=== PATIENT | female | born 1975 | race Two or more races ===

== ENCOUNTER 2022-07-11 17:38 | Emergency (ER) | payer MEDICAID ==
[~2022-07-11] VITALS: Ht 167.6 cm; Wt 106.3 kg
[2022-07-11 17:57] VITALS: BP 154/89
== END 2022-07-11 19:27 | disposition left against medical advice (07) ==
LOC: ER 17:38
DX: S61.012A Laceration without foreign body of left thumb without damage to nail, initial encounter (principal); Z53.21 Procedure and treatment not carried out due to patient leaving prior to being seen by health care provider; W26.0XXA Contact with knife, initial encounter; Y93.89 Activity, other specified; Y92.89 Other specified places as the place of occurrence of the external cause; Y99.8 Other external cause status

== ENCOUNTER 2022-12-19 04:19 | Emergency (ER) | payer MEDICAID, OTHER | END 2022-12-19 04:23 | disposition left against medical advice (07) | LOC: EDBD 04:19 → ER 04:19 | DX: F41.9 Anxiety disorder, unspecified (principal); Z53.21 Procedure and treatment not carried out due to patient leaving prior to being seen by health care provider ==

== ENCOUNTER 2023-10-22 17:20 | Emergency (ER) | payer MEDICAID ==
[~2023-10-22] VITALS: Ht 167.6 cm; Wt 100.0 kg
[2023-10-22 17:31] VITALS: BP 153/91; PULSE 80
[2023-10-22] MEDS ORDERED: LISI-275 PO (17:43)
[2023-10-22 17:44] VITALS: RESP 18; O2SAT 99
== END 2023-10-22 18:25 | disposition home or self-care (01) ==
LOC: ER 17:20
DX: I12.9 Hypertensive chronic kidney disease with stage 1 through stage 4 chronic kidney disease, or unspecified chronic kidney disease (principal); N18.9 Chronic kidney disease, unspecified; F17.210 Nicotine dependence, cigarettes, uncomplicated; Z98.890 Other specified postprocedural states; Z88.5 Allergy status to narcotic agent

== ENCOUNTER 2024-03-24 23:08 | Emergency (ER) | payer MEDICAID ==
[~2024-03-24] VITALS: Ht 167.6 cm; Wt 81.8 kg
[~2024-03-24 23:08] MED LIST: LISI-275 PO
[2024-03-24 23:10] VITALS: BP 128/88; PULSE 89; RESP 18; O2SAT 100
== END 2024-03-24 23:22 | disposition left against medical advice (07) ==
LOC: EDBD 23:08 → ER 23:08
DX: J45.909 Unspecified asthma, uncomplicated (principal); Z53.21 Procedure and treatment not carried out due to patient leaving prior to being seen by health care provider

== ENCOUNTER 2024-10-24 03:51 | Emergency (ER) | payer MEDICAID ==
[~2024-10-24] VITALS: Ht 165.1 cm; Wt 117.2 kg
[2024-10-24 03:53] VITALS: BP 179/102; PULSE 90; RESP 24; TEMP 98.1; O2SAT 98
[2024-10-24] MEDS ORDERED: DIPH25CA66 PO (04:04)
[2024-10-24] MEDS ORDERED: PRED20TA2 PO (04:04)
--- NOTE | 2024-10-24 04:04 | ED.PDOC ---
HPI Allergic reaction HPI Comments 39-year-old female presents to ER with complaints of allergic reaction x1 hour. Patient reports that she woke up 1 hour prior to arrival to ER with sensation of tongue swelling and throat swelling and states she's had similar symptoms in the past related to an allergic reaction. Denies use of medications for current symptoms and denies any known triggers for her symptoms. Patient presents to ER ambulatory on arrival, speaking in clear and complete sentences, in no distress with no appreciable tongue swelling or throat swelling noted. Denies shortness of breath, chest pain, skin changes, nausea/vomiting, use of new soaps/detergents/lotions or any further symptoms/complaints Chief Complaint: Allergic Reaction Time Seen by MD: 03:56 Primary Care Provider: NONE Reviewed Notes: Nurses Notes, Medications, Allergies Allergies: Coded Allergies: Codeine (Verified Allergy, Unknown, 09/15/15) Home Meds Active Scripts Prednisone (Prednisone) 20 Mg Tab, 20 MG PO BID for 5 Days, #10 TAB 0 Refills Prov:DANIEL EMERSON 10/24/24 Diphenhydramine Hcl (Benadryl Allergy) 25 Mg Cap, 2 CAP PO Q6HPRN, #30 CAP 0 Refills Prov:DANIEL EMERSON 10/24/24 Lisinopril (Lisinopril) 5 Mg Tab, 5 MG PO DAILY for 30 Days, #30 TAB 1 Refill Prov:DON BATISTA 10/22/23 Information Source: Patient Mode of Arrival: Ambulatory Past Medical History PAST MEDICAL HISTORY: Anxiety, CKF, HTN, Kidney Stones Surgical History: Appendectomy, Cholecystectomy, 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 History Family History Family History: Unknown Social History Smoker: Cigarettes, Less Than 1 Pack/Day Alcohol: Denies ETOH Use Drugs: Denies Drug Use Lives In: Home Constitutional: denies: chills, diaphoresis, fatigue, fever, malaise, sweats, weakness, others EENTM: reports: others (As stated in HPI) Respiratory: denies: cough, hemoptysis, orthopnea, SOB at rest, shortness of breath, SOB with excertion, stridor, wheezing, others Cardiovascular: denies: chest pain, dizzy spells, diaphoresis, Dyspnea on exertion, edema, irregular heart beat, left arm pain, lightheadedness, palpitations, PND, syncope, others Gastrointestinal: denies: abdomen distended, abdominal pain, blood streaked bowels, constipated, diarrhea, dysphagia, difficulty swallowing, hematemesis, melena, nausea, poor appetite, poor fluid intake, rectal bleeding, rectal pain, vomiting, others Genitourinary: denies: abnormal vagina bleeding, burning, dyspareunia, dysuria, flank pain, frequency, hematuria, incontinence, pain, , vagina discharge, urgency, others Neurological: denies: dizziness, fainting, headache, left sided numbness, left sided weakness, numbness, paresthesia, pre-existing deficit, right sided numbness, right sided weakness, seizure, speech problems, tingling, tremors, weakness, others Musculoskeletal: denies: back pain, gout, joint pain, joint swelling, muscle pain, muscle stiffness, neck pain, others Integumetry: reports: others (As stated in HPI) Allergic/Immunocompromised: denies: Difficulty Healing, Frequent Infections, Hives, Itching, others Hematologic/Lymphatic: denies: anemia, blood clots, easy bleeding, easy bruising, swollen glands, others Endocrine: denies: excessive hunger, excessive sweating, excessive thirst, excessive urination, flushing, intolerance to cold, intolerance to heat, unexplained weight gain, unexplained weight loss, others Psychiatric: denies: anxiety, bipolar disorder, depression, hopeless, panic disorder, schizophrenia, sleepless, suicidal, others Physical Exam General Appearance: No Apparent Distress, Obese HEENT: Normal ENT Inspection (No tongue swelling appreciated. Normal ENT examination), PERRL/EOMI, Pharynx Normal, TMs Normal Neck: Full Range of Motion, Non-Tender, Normal Respiratory: Chest Non-Tender, Lungs Clear, No Accessory Muscle Use, No Respiratory Distress, Normal Breath Sounds Cardiovascular: No Murmur, No Gallop, Regular Rate/Rhythm Breast Exam: Deferred Gastrointestinal: NOT DONE Genitalia: Deferred Pelvic: Deferred Rectal: Deferred Extremities: Normal capillary refill, Normal range of motion Neurologic: Alert, No Motor Deficits, Normal Affect, Normal Mood, No Sensory Deficits Cerebellar Function: Normal Reflexes: Normal Skin: Dry, Normal Color, Warm Lymphatic: No Adenopathy Was a procedure done? Was a procedure done?: No Sedation Sedation?: No Differential diagnosis (all) Differential Diagnosis: Anaphylaxis, Angioedema, Respiratory Failure X-Ray, Labs, Meds, VS Vital Signs Date Time Temp Pulse Resp B/P (MAP) Pulse Ox O2 Delivery O2 Flow Rate FiO2 10/24/24 03:53 98.1 90 24 179/102 98 98.1 Current Medications Medications (Trade) Dose Ordered Sig/Alysha Route Start Time Stop Time Status Last Admin Methylprednisolone Sodium Succinate (Solu Medrol) 125 mg ONCE ONCE IM 10/24/24 04:15 10/24/24 04:16 DC 10/24/24 04:16 Diphenhydramine HCl (Benadryl Injection) 25 mg ONCE ONCE IM 10/24/24 04:15 10/24/24 04:16 DC 10/24/24 04:16 Solu-Medrol 125 mg IM ordered Benadryl 25 mg IM ordered Patient had improvement in symptoms and denied any sensation of tongue swelling/throat swelling or any shortness of breath prior to discharge Advised to drink plenty of fluids Advised to follow up with PCP in 1-2 days Patient verbalized understanding and agreeable with current plan of care Advised to return to ER immediately if symptoms worsen Time of 1ST Reevaluation: 03:56 Reevaluation 1ST: N/A Patient Education/Counseling: Diagnosis, Treatment, Prognosis, Need For Follow Up Family Education/Counseling: No Family Present SEPSIS Sepsis Screen Date sepsis recognized/suspect: Oct 24, 2024 Time Sepsis recognized/suspect: 352 Recent Procedure: No On Antibiotic Therapy: No Respiratory Rate >20: Yes Heart Rate >90: No Temp<36 C (96.8 F) or >38.3 C: No SBP <90 or MAP <65 mmHG: No New Acute Mental Status Change: No Is the patient on CPAP, BIPAP,: No Vital Signs Date Time Temp Pulse Resp B/P (MAP) Pulse Ox O2 Delivery O2 Flow Rate FiO2 10/24/24 03:53 98.1 90 24 179/102 98 98.1 Medications Medications Dose Ordered Sig/Alysha Route Start Time Stop Time Status Last Admin Dose Admin Diphenhydramine HCl 25 mg ONCE ONCE IM 10/24/24 04:15 10/24/24 04:16 DC 10/24/24 04:16 Methylprednisolone Sodium Succinate 125 mg ONCE ONCE IM 10/24/24 04:15 10/24/24 04:16 DC 10/24/24 04:16 Departure 1 Departure Time of Disposition: 04:02 Impression: Primary Impression: Allergic reaction Qualified Codes: T78.40XA - Allergy, unspecified, initial encounter Disposition: 01 HOME / SELF CARE / HOMELESS Condition: Stable e-Prescriptions Prednisone (Prednisone) 20 Mg Tab 20 MG PO BID for 5 Days, #10 TAB 0 Refills Prov: DANIEL EMERSON 10/24/24 Diphenhydramine Hcl (Benadryl Allergy) 25 Mg Cap 2 CAP PO Q6HPRN, #30 CAP 0 Refills Prov: DANIEL EMERSON 10/24/24 Discharged With: Friend Critical Care Note Critical Care Time?: No Stability Stability form required: No Heart Score Heart Score: Heart Score Response (Comments) Value History N/A 0 EKG N/A 0 Age N/A 0 Risk Factors N/A 0 Troponin N/A 0 Total 0 DANIEL EMERSON Oct 24, 2024 04:04
[2024-10-24] MEDS: diphenhdrAMINE HCL 50 MG/1 ML VL IM ONE (04:16)
[2024-10-24] MEDS: methylPREDNISolone SOD SUCC 125 MG/2 ML VL IM ONE (04:16)
== END 2024-10-24 06:17 | disposition home or self-care (01) ==
LOC: ER 03:51
DX: T78.49XA Other allergy, initial encounter (principal); I12.9 Hypertensive chronic kidney disease with stage 1 through stage 4 chronic kidney disease, or unspecified chronic kidney disease; N18.9 Chronic kidney disease, unspecified; F17.210 Nicotine dependence, cigarettes, uncomplicated; Z79.899 Other long term (current) drug therapy; Z87.442 Personal history of urinary calculi; Z88.5 Allergy status to narcotic agent; Z90.49 Acquired absence of other specified parts of digestive tract; X58.XXXA Exposure to other specified factors, initial encounter
CPT/HCPCS: 96372; 99284; J1200; J2919

== ENCOUNTER 2025-01-25 18:53 | Inpatient (IN) | payer MEDICAID ==
[~2025-01-25] VITALS: Ht 165.1 cm; Wt 109.0 kg
[~2025-01-25 18:53] MED LIST changes: +DIPH25CA66 PO; +PRED20TA2 PO
[2025-01-25 18:56] VITALS: BP 170/93; RESP 16; TEMP 98.9; O2SAT 99
--- NOTE | 2025-01-25 19:51 | ED.PDOC ---
HPI Comments HPI: Poor Historian. 49-year-old female presents to emergency department for evaluation of one day history of midsternal chest pain with left upper extremity numbness and tingling. This happened today while at rest. Patient states his symptoms resolved and then returned back again. Patient is currently on blood pressure medications and prednisone for her lupus. Past Medical History: Lupus, hypertension, obesity, tobacco abuse, anxiety Past Surgical History: Cholecystectomy, appendectomy REVIEW OF SYSTEMS: CONSTITUTIONAL: Denies acute: fever, diaphoresis, chills, generalized weakness. HEAD: Denies acute: headache, photophobia Eyes: Denies acute: Double vision, vision loss, eye pain, eye discharge. EARS: Denies acute: tinnitus, hearing loss, ear discharge, ear pain, THROAT: Denies acute: sore throat, swelling, difficulty swallowing , pain with swallowing, change in voice. NECK: Denies acute: neck pain, neck swelling, stiff neck. HEART: Denies acute : , palpitations, LUNGS: Denies acute: SOB, wheezing, cough, hemoptysis ABDOMEN: Denies acute: abdominal pain, Nausea, Vomiting, diarrhea, melena , hematemesis, hematochezia SKIN: Denies acute: rash, redness, lesions, itchiness. EXTREMITIES: Denies acute: calf pain, weakness, denies pain in extremity. Denies acute: Low back pain. Neuro: Denies acute: focal neurological deficit, motor or sensory focal neurological deficit, tremors, seizure like activity, confusion, dizziness, change in mental status, loss of bowel or bladder function, cauda equina like symptoms. : Denies acute: dysuria, hematuria, flank pain, increase in urinary frequency. PSYCH: Denies acute: hallucination, suicidal ideation, homicidal ideation. FEMALE: Denies acute: abnormal vaginal bleeding, foul odor, unusual discharge. PHYSICAL EXAM: General: ----mild----acute distress, awake and alert. Head: normocephalic, atraumatic. No raccoon's eyes, no baxter sign. Neck: supple, trachea is midline, no swelling. Throat: Normal phonation. Eyes:, no erythema, no purulent discharge, no proptosis, no icterus. Heart: regular rate, regular rhythm, no significant murmur appreciated. Lungs: no apparent respiratory distress, Able to speak in full sentences. No wheezing, no rhonchi, no crackles. No stridors Clear to auscultation bilaterally. Abdomen: non tender to palpation, non distended, soft, no guarding, no rebound, + bowel sounds. Obese Neuro: Awake, Alert, oriented to name, self, situation, follows commands GCS=15. Speech is normal. Skin: no petechia, no purpura, no cyanosis, non-pale, not jaundice. Lower extremities: --no - Pitting edema no deformity, no focal swelling, no calf TTP. Makes eye contact. moves all four extremities. Face: no apparent facial droop. Ambulating in the ED independently. ED COURSE: DISCLAIMER: This medical document was created using an electronic medical record system with voice recognition software and computerized dictation system. Although this document has been carefully reviewed, there might still be some phonetic and typographical errors. Occasional wrong-word or "sound-alike" substitutions may have occurred due to the inherent limitations of voice recognition software. These areas are purely typographical due to imperfections of the software programs and do not reflect any compromise in the patient's medical care. Please read the chart carefully and recognize, using context, where these substitutions have occurred. Chief Complaint: Chest Pain Time Seen by MD: 19:32 Primary Care Provider: NONE Reviewed Notes: Allergies Allergies: Coded Allergies: Codeine (Verified Allergy, Unknown, 09/15/15) Home Meds Active Scripts Prednisone (Prednisone) 20 Mg Tab, 20 MG PO BID for 5 Days, #10 TAB 0 Refills Prov:DANIEL EMERSON 10/24/24 Diphenhydramine Hcl (Benadryl Allergy) 25 Mg Cap, 2 CAP PO Q6HPRN, #30 CAP 0 Refills Prov:DANIEL EMERSON 10/24/24 Lisinopril (Lisinopril) 5 Mg Tab, 5 MG PO DAILY for 30 Days, #30 TAB 1 Refill Prov:DON BATISTA PAC 10/22/23 Information Source: Patient Mode of Arrival: EMS Past Medical History PAST MEDICAL HISTORY: Anxiety, CKF, HTN, Kidney Stones Surgical History: Appendectomy, Cholecystectomy, 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 Was a procedure done?: No CP Differential Dx Differential Diagnosis: N/A Differential Diagnosis: Other (Ddx include but not limitied to gastritis, musculoskeletal pain, radiculopathy, atypical chest pain, dissection, aneurysm, ACS, unstable angina, hiatal hernia, GERD, anxiety, costochondritis, PE, pneumothroax, neoplasm, cardiac ischemia, drug abuse, anemia.) X-Ray, Labs, Meds, VS Vital Signs Date Time Temp Pulse Resp B/P (MAP) Pulse Ox O2 Delivery O2 Flow Rate FiO2 01/25/25 18:56 98.9 105 16 170/93 99 98.9 01/25/25 18:55 103 Lab Test 01/25/25 19:35 Range/Units White Blood Count 4.6 4.4-10.8 10^3/uL Red Blood Count 4.66 4.0-5.20 10^6/uL Hemoglobin 11.4 L 12.2-16.2 g/dL Hematocrit 36.1 36.0-46.0 % Mean Corpuscular Volume 77.5 L 80.0-100.0 fL Mean Corpuscular Hemoglobin 24.4 L 28.0-32.0 pg Mean Corpuscular Hemoglobin Concent 31.5 L 32.0-36.0 g/dL Red Cell Distribution Width 16.8 H 11.8-14.3 % Platelet Count 257 140-450 10^3/uL Mean Platelet Volume 8.8 6.9-10.8 fL Neutrophils (%) (Auto) 73.0 37.0-80.0 % Lymphocytes (%) (Auto) 16.7 10.0-50.0 % Monocytes (%) (Auto) 6.1 0.0-12.0 % Eosinophils (%) (Auto) 3.6 0.0-7.0 % Basophils (%) (Auto) 0.6 0.0-2.0 % Neutrophils # (Auto) 3.3 1.6-8.6 10 ^3/uL Lymphocytes # (Auto) 0.8 0.4-5.4 10 ^3/uL Monocytes # (Auto) 0.3 0-1.3 10 ^3/uL Eosinophils # (Auto) 0.2 0-0.8 10 ^3/uL Basophils # (Auto) 0 0-0.2 10 ^3/uL Nucleated Red Blood Cells 0.1 % Sodium Level 143 136-145 mmol/L Potassium Level 3.8 3.5-5.1 mmol/L Chloride Level 107 98-107 mmol/L Carbon Dioxide Level 27 20-31 mmol/L Anion Gap 9 5-15 Blood Urea Nitrogen 9 9-23 mg/dL Creatinine 0.97 0.550-1.02 mg/dL Glomerular Filtration Rate Calc 73 >90 mL/min BUN/Creatinine Ratio 9.3 L 10.0-20.0 Serum Glucose 86 74-106 mg/dL Calcium Level 8.5 L 8.7-10.4 mg/dL Troponin I High Sensitivity 21 </=34 ng/L X-Ray, Labs, Meds, VS Comment [place] [address] Ph: [phone] DIAGNOSTIC IMAGING Diagnostic Imaging Report : [id number] Signed PATIENT: NITO FLOWER ACCT: [id number] UNIT: [id number] : 1975 LOC: ER ROOM / BED: / AGE / SEX: 49 / F ADM STATUS: REG ER SERVICE 19 ORDERING PHYSICIAN: BENY SHARIF MD PROCEDURE(s): CXR1 - CHEST XRAY 1 VIEW REASON: CP ORDER NUMBER(s): [id number], ACCESSION NUMBER(s): [id number] CHEST RADIOGRAPH Indication: CP Technique: Single frontal view of the chest was obtained Comparison: None FINDINGS: Lines and Tubes: None Lungs: No focal consolidation. Pleura: No effusion. No pneumothorax. Cardiomediastinal contours: Unremarkable Bones: No acute osseous abnormality. IMPRESSION: 1. No acute cardiopulmonary disease. ATED BY: SHAYNE REYES Jr., DO DICTATED DATE/TIME: 01/25/252025 SIGNED BY: SHAYNE REYES Jr., DO SIGNED DATE/TIME: 01/25/252025 CC: Time of 1ST Reevaluation: 00:00 Reevaluation 1ST: Improved Patient Education/Counseling: Diagnosis, Treatment Family Education/Counseling: Other Comments MDM: patient presented with the above HPI.----cardiac--workup was initiated. patient was found with the above mentioned diagnosis. the following medications were ordered: please refer to order lists of meds and tests obtained by myself Dr. Cardozo. Patient ED course and VS have been stabilized. Patient has been reassessed in the ED and remained in a stable condition. Pertinent incidental findings were discussed with the patient and/or family. Patient/family voices understanding and is agreeable with plan. Patient has been observed in the ED adequate length of time to insure improvement/stability. Escalation of care considered: Consideration of escalation to observation or admission Patient was ADMITTED to the medicine team for further evaluation and treatment of their presentation. I was later informed that the patient left against medical advice. All the reports of any imaging studies that were ordered by myself were reviewed by myself. Departure 1 Departure Time of Disposition: 19:51 Impression: Primary Impression: Chest pain Disposition: ADMITTED INPATIENT [facility]mit to: [facility] Condition: Guarded Additional Instructions: [place] [address] Ph: [phone] DIAGNOSTIC IMAGING Diagnostic Imaging Report : [id number] Signed PATIENT: NITO FLOWER ACCT: [id number] UNIT: [id number] : 1975 LOC: ER ROOM / BED: / AGE / SEX: 49 / F ADM STATUS: REG ER SERVICE 19 ORDERING PHYSICIAN: BENY SHARIF MD PROCEDURE(s): CXR1 - CHEST XRAY 1 VIEW REASON: CP ORDER NUMBER(s): [id number], ACCESSION NUMBER(s): [id number] CHEST RADIOGRAPH Indication: CP Technique: Single frontal view of the chest was obtained Comparison: None FINDINGS: Lines and Tubes: None Lungs: No focal consolidation. Pleura: No effusion. No pneumothorax. Cardiomediastinal contours: Unremarkable Bones: No acute osseous abnormality. IMPRESSION: 1. No acute cardiopulmonary disease. ATED BY: SHAYNE REYES Jr., DO DICTATED DATE/TIME: 01/25/252025 SIGNED BY: SHAYNE REYES Jr., DO SIGNED DATE/TIME: 01/25/252025 CC: Discharged With: Self Critical Care Note Critical Care Time?: No Heart Score Heart Score: Heart Score Response (Comments) Value History Moderate Suspicious 1 EKG Normal 0 Age 45-64 1 Risk Factors >3 or Hx ASHD 2 Troponin Normal limit 0 Total 4 I personally scribed for GREG CARDOZO DO ([email or web address]) on 01/25/25 at 21:08. Electronically submitted by Leeroy Kumar ([email or web address]). GREG CARDOZO DO Jan 25, 2025 19:51
[2025-01-25 20:02] LABS: Hemoglobin 11.4 g/dL (12.2-16.2); Nucleated Red Blood Cells % 0.1 %
[2025-01-25 20:04] LABS: Hematocrit 36.1 % (36.0-46.0); Mean Corpuscular Hemoglobin 24.4 pg (28.0-32.0); Mean Corpuscular Volume 77.5 fL (80.0-100.0)
[2025-01-25 20:07] LABS: Potassium 3.8 mmol/L (3.5-5.1); Sodium 143 mmol/L (136-145)
[2025-01-25 20:08] LABS: Anion Gap 9 (5-15); Carbon Dioxide 27 mmol/L (20-31)
[2025-01-25 20:13] LABS: BUN/Creatinine Ratio 9.3 (10.0-20.0); Blood Urea Nitrogen 9 mg/dL (9-23); Glucose 86 mg/dL (74-106)
[2025-01-25 20:16] LABS: Calcium 8.5 mg/dL (8.7-10.4); Chloride 107 mmol/L (98-107)
[2025-01-25 20:19] VITALS: PULSE 91
--- NOTE | 2025-01-25 20:28 | DVH ---
CHEST RADIOGRAPH Indication: CP Technique: Single frontal view of the chest was obtained Comparison: None FINDINGS: Lines and Tubes: None Lungs: No focal consolidation. Pleura: No effusion. No pneumothorax. Cardiomediastinal contours: Unremarkable Bones: No acute osseous abnormality. IMPRESSION: 1. No acute cardiopulmonary disease.
[2025-01-25] MEDS ORDERED: NITROGLYCERIN 0.4 MG SL TAB SL ONE (21:00)
[2025-01-25] MEDS ORDERED: ASPirin-EC 325mg tab PO ONE (21:00)
--- NOTE | 2025-01-25 21:27 | DVHHPRES ---
History of Present Illness Resident Creating Document: MANAV SANDOVAL RESIDENT History of Present Illness This is a 49-year-old female with past medical history of SLE, obesity, current smoker, anxiety disorder, HTN, seizure disorder on Topamax came to ER with a complaint of chest pain for 6 months but worsen 2 hours before arrival to ER which is 10/10 intensity, retrosternal, feeling elephant sitting on the chest, associated with feeling numbness left lower extremity and tingling sensation. Patient current symptoms associated with nausea, dizziness, SOB. Patient denies any recent history of taking new medication, sick contacts, chest trauma or MVA. Denies any fever, headache, abdominal pain, dysuria or any focal weakness. Patient also stated snoring at nighttime and scheduled for sleep apnea test. Patient scheduled for Cardiology and stress test due next month. Past medical history: As above For surgical history: Cholecystectomy, appendectomy Family history: Nothing contributory Personal history: Current smoker, denies illicit drug or EtOH use use Allergy: Codeine PCP: . Review of Systems Constitutional: Yes: Malaise; No: Fever, Chills, Sweats, Weakness, Other Eyes: No: Pain, Vision change, Conjunctivae inflammation, Eyelid inflammation, Other, Redness ENT: No: Ear pain, Ear discharge, Nose pain, Nose discharge, Nose congestion, Mouth pain, Mouth swelling, Throat pain, Throat swelling, Other Respiratory: No: Cough, Dry, Shortness of breath, SOB with excertion, Wheezing, Hemoptysis, Pleuritic Pain, Sputum, Wheezing, Other Cardiovascular: Chest Pain, Palpitations, Paroxysmal Noc. Dyspnea; No: Orthopnea, Edema, Lt Headedness, Other Gastrointestinal: Nausea; No: Vomiting, Abdominal Pain, Diarrhea, Constipation, Melena, Hematochezia, Other Genitourinary: No Dysuria, No Frequency, No Incontinence, No Hematuria, No Retention, No Other Musculoskeletal: No: other, neck pain, shoulder pain, arm pain, back pain, hand pain, leg pain, foot pain Skin: No: Rash, Lesions, Jaundice, Bruising, Other Neurological: No: Weakness, Numbness, Incoordination, Change in speech, Confusion, Seizures, Other Allergies: Coded Allergies: Codeine (Verified Allergy, Unknown, 09/15/15) Exam Vital Signs Vital Signs Date Time Temp Pulse Resp B/P (MAP) Pulse Ox O2 Delivery O2 Flow Rate FiO2 01/25/25 18:56 98.9 105 16 170/93 99 98.9 General Appearance: Alert, Oriented X3, Cooperative, mild distress, Other (Obese) HEENT: PERRLA, EOMI, Mucous membr. moist/pink Respiratory: Normal air movement Cardiovascular: Regular rate, Normal S1, Normal S2, No murmurs Abdominal: Normal bowel sounds, Soft, No tenderness Extremities: No clubbing, No cyanosis, No edema Skin: No rashes, No breakdown, No significant lesion Neuro: Normal gait, Normal speech, Sensation intact Labs/Xrays Labs Test 01/25/25 19:35 Range/Units White Blood Count 4.6 4.4-10.8 10^3/uL Red Blood Count 4.66 4.0-5.20 10^6/uL Hemoglobin 11.4 L 12.2-16.2 g/dL Hematocrit 36.1 36.0-46.0 % Mean Corpuscular Volume 77.5 L 80.0-100.0 fL Mean Corpuscular Hemoglobin 24.4 L 28.0-32.0 pg Mean Corpuscular Hemoglobin Concent 31.5 L 32.0-36.0 g/dL Red Cell Distribution Width 16.8 H 11.8-14.3 % Platelet Count 257 140-450 10^3/uL Mean Platelet Volume 8.8 6.9-10.8 fL Neutrophils (%) (Auto) 73.0 37.0-80.0 % Lymphocytes (%) (Auto) 16.7 10.0-50.0 % Monocytes (%) (Auto) 6.1 0.0-12.0 % Eosinophils (%) (Auto) 3.6 0.0-7.0 % Basophils (%) (Auto) 0.6 0.0-2.0 % Neutrophils # (Auto) 3.3 1.6-8.6 10 ^3/uL Lymphocytes # (Auto) 0.8 0.4-5.4 10 ^3/uL Monocytes # (Auto) 0.3 0-1.3 10 ^3/uL Eosinophils # (Auto) 0.2 0-0.8 10 ^3/uL Basophils # (Auto) 0 0-0.2 10 ^3/uL Nucleated Red Blood Cells 0.1 % Sodium Level 143 136-145 mmol/L Potassium Level 3.8 3.5-5.1 mmol/L Chloride Level 107 98-107 mmol/L Carbon Dioxide Level 27 20-31 mmol/L Anion Gap 9 5-15 Blood Urea Nitrogen 9 9-23 mg/dL Creatinine 0.97 0.550-1.02 mg/dL Glomerular Filtration Rate Calc 73 >90 mL/min BUN/Creatinine Ratio 9.3 L 10.0-20.0 Serum Glucose 86 74-106 mg/dL Calcium Level 8.5 L 8.7-10.4 mg/dL Troponin I High Sensitivity 21 </=34 ng/L SEPSIS Sepsis Screen Date sepsis recognized/suspect: Jan 25, 2025 Time Sepsis recognized/suspect: 1855 Recent Procedure: No On Antibiotic Therapy: No Respiratory Rate >20: No Heart Rate >90: Yes Temp<36 C (96.8 F) or >38.3 C: No SBP <90 or MAP <65 mmHG: No New Acute Mental Status Change: No Is the patient on CPAP, BIPAP,: No Physician Orders Electrocardigram (01/25/25 19:02) Electrocardigram (01/25/25 20:02) Electrocardigram (01/25/25 22:02) Troponin-I Hs (01/25/25 20:20) Troponin-I Hs (01/25/25 22:20) Chest Xray 1 View (01/25/25 19:20) Urine (01/25/25 ) Admit (01/25/25 21:21) Code Status (01/25/25 21:21) Enoxaparin Sodium (Lovenox) (01/26/25 10:00) Cardiac Diet-2gna,Lofat,Lochol (01/26/25 Breakfast) Echo 2d Mode Cardiac Dop (01/25/25 21:21) Acetaminophen Tablet (Tylenol Tablet) (01/25/25 21:30) Nitroglycerin Sublingual (Ntrostat Subli (01/25/25 21:30) Morphine Sulfate Injection (01/25/25 21:30) Oxygen By Nasal Cannula (01/25/25 21:21) Stat Ekg For Chest Pain (01/25/25 21:21) Notify Md Of Changes From Base (01/25/25 21:21) Garment Manufacturing Supervisor For 24 Hours (01/25/25 21:21) Emergency Dysrhythmia Protocol (01/25/25 21:21) Rhythm Strips Once Every Shift (01/25/25 21:21) Lisinopril Tablet (Zestril Tablet) (01/25/25 21:30) Lisinopril Tablet (Zestril Tablet) (01/26/25 10:00) Prednisolone (01/26/25 10:00) Pantoprazole Tablet (Protonix Tablet) (01/26/25 06:00) Topiramate (Topamax) (01/25/25 22:00) Aspirin Enteric Coated Tablet (Ecotrin E (01/26/25 10:00) Atorvastatin (Lipitor) (01/25/25 22:00) Vital Signs Date Time Temp Pulse Resp B/P (MAP) Pulse Ox O2 Delivery O2 Flow Rate FiO2 01/25/25 18:56 98.9 105 16 170/93 99 98.9 01/25/25 18:55 103 Laboratory Tests Test 01/25/25 19:35 White Blood Count 4.6 10^3/uL (4.4-10.8) Assessment/Plan Assessment/Plan Chest pain likely unstable angina Hypertensive heart disease Costochondritis Patient came with chest pain associated with nausea, SOB, dizziness During admission patient tachycardic Blood pressure 170/93 CXR: No acute cardiopulmonary EKG: No acute ST changes, HR 103, QTC 470 Troponin 21 Aspirin Atorvastatin Lisinopril Nitroglycerin as needed Pain management Cardiology as per primary team Microcytic hypochromic anemia likely DARRIUS HEMOGLOBIN 11.4, HCT 36.1, MCV 77.5, RDW 16.8 No signs symptoms of active bleeding CBC Hypokalemia Serum calcium 8.5 Follow labs Systemic lupus erythematosus Prednisolone Grand mal seizure disorder Topamax Morbid obesity, BMI 40.0 Lifestyle modification Sleep study-outpatient Diet: Cardiac GI prophylaxis: Protonix DVT: Lovenox Goals of care discussion. More than 29 minute spent with patient. Full code status. Discussed with Dr. Benjamin Plan discussed with: Patient, Other (Nurse) My Orders Orders - MANAV SANDOVAL RESIDENT Procedure Category Date Status Time Admit ADMIT 01/25/25 Verified 21:21 Code Status CODE 01/25/25 Verified 21:21 Enoxaparin Sodium PHA 01/26/25 Verified (Lovenox) 10:00 Cardiac DIET 01/26/25 Verified Diet-2gna,Lofat,Lochol Breakfast Echo 2d Mode Cardiac US 01/25/25 Verified DOP 21:21 Acetaminophen Tablet PHA 01/25/25 Verified (Tylenol Tablet) 21:30 Nitroglycerin PHA 01/25/25 Verified Sublingual (Ntrostat 21:30 Morphine Sulfate PHA 01/25/25 Verified Injection 21:30 Oxygen By Nasal RT 01/25/25 Verified Cannula 21:21 Stat Ekg For Chest [place] 01/25/25 Verified Pain 21:21 Notify Md Of Changes [facility] 01/25/25 Verified From Base 21:21 Garment Manufacturing Supervisor For [facility] 01/25/25 Verified 24 Hours 21:21 Emergency Dysrhythmia [facility] 01/25/25 Verified Protocol 21:21 Rhythm Strips Once [facility] 01/25/25 Verified Every Shift 21:21 Lisinopril Tablet PHA 01/25/25 Verified (Zestril Tablet) 21:30 Lisinopril Tablet PHA 01/26/25 Verified (Zestril Tablet) 10:00 Prednisolone PHA 01/26/25 Verified 10:00 Pantoprazole Tablet PHA 01/26/25 Verified (Protonix Tablet) 06:00 Topiramate (Topamax) PHA 01/25/25 Verified 22:00 Aspirin Enteric PHA 01/26/25 Verified Coated Tablet 10:00 Atorvastatin (Lipitor) PHA 01/25/25 Verified 22:00 Visit Coding STANDARD RES Billing Provider: JORGE ALBERTO BENJAMIN MD Date of Service if different f: Jan 25, 2025 Common Visit Codes: 60097-ROXEJBJ INP/OBS CARE (HIGH) Secondary Visit Codes: 82127-SOQMMPZT CARE PLAN 30 MINUTES MANAV SANDOVAL RESIDENT Jan 25, 2025 21:27
[2025-01-25] MEDS ORDERED: ACETAMINOPHEN 325 MG TAB PO PRN (21:30)
[2025-01-25] MEDS ORDERED: MORPHINE SULFATE INJ 2 MG/ml SYRG IV PRN (21:30)
[2025-01-25] MEDS ORDERED: NITROGLYCERIN 0.4 MG SL TAB SL PRN (21:30)
[2025-01-25] MEDS ORDERED: LISINOPRIL 5 MG TAB PO ONE (21:30)
[2025-01-25] MEDS ORDERED: ATORVASTATIN 20 MG TAB PO SCH (22:00)
[2025-01-25] MEDS ORDERED: TOPIRAMATE 25 MG TAB PO SCH (22:00)
--- NOTE | 2025-01-26 03:49 | DVHDSRES ---
Discharge Summary Date of Admission Resident Creating Document: MANAV SANDOVAL RESIDENT Jan 25, 2025 at 21:21 Date of Discharge: Jan 26, 2025 Labs/Diagnostic Data: Laboratory Results Test 01/25/25 22:25 01/25/25 19:35 Troponin I High Sensitivity 26 ng/L (</=34) White Blood Count 4.6 10^3/uL (4.4-10.8) Red Blood Count 4.66 10^6/uL (4.0-5.20) Hemoglobin 11.4 g/dL (12.2-16.2) Hematocrit 36.1 % (36.0-46.0) Mean Corpuscular Volume 77.5 fL (80.0-100.0) Mean Corpuscular Hemoglobin 24.4 pg (28.0-32.0) Mean Corpuscular Hemoglobin Concent 31.5 g/dL (32.0-36.0) Red Cell Distribution Width 16.8 % (11.8-14.3) Platelet Count 257 10^3/uL (140-450) Mean Platelet Volume 8.8 fL (6.9-10.8) Neutrophils (%) (Auto) 73.0 % (37.0-80.0) Lymphocytes (%) (Auto) 16.7 % (10.0-50.0) Monocytes (%) (Auto) 6.1 % (0.0-12.0) Eosinophils (%) (Auto) 3.6 % (0.0-7.0) Basophils (%) (Auto) 0.6 % (0.0-2.0) Neutrophils # (Auto) 3.3 10 ^3/uL (1.6-8.6) Lymphocytes # (Auto) 0.8 10 ^3/uL (0.4-5.4) Monocytes # (Auto) 0.3 10 ^3/uL (0-1.3) Eosinophils # (Auto) 0.2 10 ^3/uL (0-0.8) Basophils # (Auto) 0 10 ^3/uL (0-0.2) Nucleated Red Blood Cells 0.1 % Sodium Level 143 mmol/L (136-145) Potassium Level 3.8 mmol/L (3.5-5.1) Chloride Level 107 mmol/L (98-107) Carbon Dioxide Level 27 mmol/L (20-31) Anion Gap 9 (5-15) Blood Urea Nitrogen 9 mg/dL (9-23) Creatinine 0.97 mg/dL (0.550-1.02) Glomerular Filtration Rate Calc 73 mL/min (>90) BUN/Creatinine Ratio 9.3 (10.0-20.0) Serum Glucose 86 mg/dL (74-106) Calcium Level 8.5 mg/dL (8.7-10.4) Other Laboratory Tests 01/25/25 19:35 Brief Hx & Hospital Course: This is a 49-year-old female with past medical history of SLE, obesity, current smoker, anxiety disorder, HTN, seizure disorder on Topamax came to ER with a complaint of chest pain for 6 months but worsen 2 hours before arrival to ER which is 10/10 intensity, retrosternal, feeling elephant sitting on the chest, associated with feeling numbness left lower extremity and tingling sensation. Patient current symptoms associated with nausea, dizziness, SOB. Patient denies any recent history of taking new medication, sick contacts, chest trauma or MVA. Denies any fever, headache, abdominal pain, dysuria or any focal weakness. Patient also stated snoring at nighttime and scheduled for sleep apnea test. Patient scheduled for Cardiology and stress test due next month. Past medical history: As above For surgical history: Cholecystectomy, appendectomy Family history: Nothing contributory Personal history: Current smoker, denies illicit drug or EtOH use use Allergy: Codeine PCP: . Patient left AMA. Patient medical condition undetermined during discharge. Extremely discussion with RN done regarding disadvantages left AMA including increased morbidity and mortality. Patient verbally understood and vertebral discussed. Patient signed out AMA from and Hep-[facility] and all IV line removed by RN. Patient advised to return ER if any symptoms worsen not limited to current symptoms. Patient verbalized understanding vertebral discussed. Operations or Procedures PATIENT: NITO FLOWER ACCT: [id number] UNIT: [id number] : 1975 LOC: ER ROOM / BED: / AGE / SEX: 49 / F ADM STATUS: REG ER SERVICE 19 ORDERING PHYSICIAN: BENY SHARIF MD PROCEDURE(s): CXR1 - CHEST XRAY 1 VIEW REASON: CP ORDER NUMBER(s): [id number], ACCESSION NUMBER(s): [id number] CHEST RADIOGRAPH Indication: CP Technique: Single frontal view of the chest was obtained Comparison: None FINDINGS: Lines and Tubes: None Lungs: No focal consolidation. Pleura: No effusion. No pneumothorax. Cardiomediastinal contours: Unremarkable Bones: No acute osseous abnormality. IMPRESSION: 1. No acute cardiopulmonary disease. ATED BY: SHAYNE REYES Jr., DO DICTATED DATE/TIME: 01/25/252025 Condition at Discharge: Undetermined Final Diagnosis/Problems List Chest pain likely unstable angina Hypertensive heart disease Costochondritis Microcytic hypochromic anemia likely DARRIUS Hypokalemia Systemic lupus erythematosus Grand mal seizure disorder Morbid obesity, BMI 40.0 Discharge Disposition: AMA Discharge Instruct/Medications Follow Up/Referral: PCP Cardiology follow-up Outpatient sleep study Scheduled Diphenhydramine Hcl (Benadryl Allergy), 2 CAP PO Q6HPRN Lisinopril (Lisinopril), 5 MG PO DAILY Prednisone (Prednisone), 20 MG PO BID Discharge Statement: "Patient was advised to return to the ER or call 911 if any headaches, dizziness, shortness of breath, chest pain, abdominal pain, bleeding, fevers, or worsening of medical condition. Patient was counseled about treatment plan, medications, possible side effects, patientverbalized understanding. All questions were answered to the best of my ability. This discharge took greater then 30 minutes in planning, reviewing documentation, counseling the patient, and discussing with other team members." ASSESSMENT ASSESSMENT Assessment Visit Coding STANDARD RES Billing Provider: JORGE ALBERTO DE LA ROSA MD Date of Service if different f: Jan 26, 2025 Common Visit Codes: 19707-MOXYENT INP/OBS CARE (HIGH) Secondary Visit Codes: 02394-[id number] CARE PLAN 30 MINUTES MANAV SANDOVAL RESIDENT Jan 26, 2025 03:49
[2025-01-26] MEDS ORDERED: PANTOPRAZOLE 40 MG TAB PO SCH (06:00)
[2025-01-26] MEDS ORDERED: prednisoLONE 15 MG/5 ML ORAL UD PO SCH (10:00)
[2025-01-26] MEDS ORDERED: LISINOPRIL 5 MG TAB PO SCH (10:00)
[2025-01-26] MEDS ORDERED: ENOXAPARIN SOD 40 MG/0.4 ML SYRINGE SC SCH (10:00)
[2025-01-26] MEDS ORDERED: ASPirin-EC 81 mg tab PO SCH (10:00)
--- NOTE | 2025-01-28 08:56 | ECG ---
[facility] Test Date: 2025-01-25 Test Time: 18:55:05 Pat Name: NITO FLOWER Department: ED Room: [address] [place] [address] Gender: F Psychology Fellow: perry : 1975 Requested By: AZAM RYAN Order Number: [id number] Reading MD: Kayode Fatima Measurements Intervals [place] Rate: 103 P: 4 PA: 142 QRS: 31 QRSD: 83 T: 33 QT: 359 QTc: 470 Interpretive Statements Sinus tachycardia Electronically Signed On 01-31-2025 19:02:25 PST by Kayode Fatima Please click the below link to view image of tracing.
--- NOTE | 2025-01-29 10:32 | ECG ---
[facility] Test Date: 2025-01-25 Test Time: 20:19:29 Pat Name: NITO FLOWER Department: ED Room: [address] [place] [address] A Gender: F Diamond Sizer: : 1975 Requested By: AZAM RYAN Order Number: [id number] Reading MD: Kayode Fatima Measurements Intervals [place] Rate: 91 P: -22 HI: 156 QRS: 50 QRSD: 78 T: 56 QT: 350 QTc: 431 Interpretive Statements Sinus rhythm Probable left atrial enlargement Electronically Signed On 01-31-2025 19:02:59 PST by Kayode Fatima Please click the below link to view image of tracing.
== END 2025-01-25 21:30 | disposition left against medical advice (07) | DRG 198 ==
LOC: EDBD 18:53 → EDUNIT# 18:53 → ER 18:53 → OVERFLOW 21:21
PROVIDERS: ATTEND Emergency Medicine
DX: I20.0 Unstable angina (principal); G40.409 Other generalized epilepsy and epileptic syndromes, not intractable, without status epilepticus; F17.210 Nicotine dependence, cigarettes, uncomplicated; E66.01 Morbid (severe) obesity due to excess calories; D50.9 Iron deficiency anemia, unspecified; E87.6 Hypokalemia; I13.10 Hypertensive heart and chronic kidney disease without heart failure, with stage 1 through stage 4 chronic kidney disease, or unspecified chronic kidney disease; M32.9 Systemic lupus erythematosus, unspecified; N18.9 Chronic kidney disease, unspecified; F41.9 Anxiety disorder, unspecified; M94.0 Chondrocostal junction syndrome [Tietze]; Z53.29 Procedure and treatment not carried out because of patient's decision for other reasons; Z90.49 Acquired absence of other specified parts of digestive tract; Z87.442 Personal history of urinary calculi; Z88.5 Allergy status to narcotic agent; Z68.41 Body mass index [BMI] 40.0-44.9, adult
CPT/HCPCS: 36415; 71045; 80048; 84484; 85025; 93005; G0378